=== PATIENT | male | born 1990 | race Caucasian/White ===

== ENCOUNTER 2024-04-06 19:59 | Emergency (ER) | payer MEDICAID ==
[~2024-04-06] VITALS: Ht 175.3 cm; Wt 61.2 kg
[2024-04-06 20:11] VITALS: TEMP 98
[2024-04-06 21:43] VITALS: BP 142/78; O2SAT 98
== END 2024-04-06 21:43 | disposition home or self-care (01) ==
LOC: ER 20:06
DX: F41.1 Generalized anxiety disorder (principal); R00.0 Tachycardia, unspecified; F19.10 Other psychoactive substance abuse, uncomplicated; Z60.2 Problems related to living alone
CPT/HCPCS: 98960